=== PATIENT | female | born 1960 | race Caucasian/White ===

== ENCOUNTER → 2017-05-09 | Outpatient (CLI) | payer MEDICARE, OTHER ==
--- NOTE | 2017-05-10 07:36 | RAD ---
EXAM DESCRIPTION: Hand,Right 3 Views CLINICAL HISTORY: 56 years Female, PAIN IN RIGHT HAND COMPARISON: None. FINDINGS: 3 views of the right hand show no acute fracture or malalignment. Mild degenerative changes involving a few interphalangeal joints. There is a tiny calcification adjacent to the tip of the ulnar styloid which is not acute and may be related to remote trauma or mild degenerative calcification. No radiopaque foreign body or soft tissue gas. IMPRESSION: Mild degenerative changes, otherwise unremarkable exam. Electronically signed by: Jalen Duggan MD 05/10/2017 7:35 AM CDT Workstation: -[facility]
--- NOTE | 2017-05-10 07:36 | RAD ---
EXAM DESCRIPTION: Hand,Left 3 Views CLINICAL HISTORY: 56 years Female, PAIN IN LEFT HAND COMPARISON: None. FINDINGS: 3 views of the left hand show no acute fracture or malalignment. The joint spaces are fairly well-maintained. Mild degenerative changes involving a few interphalangeal joints. No radiopaque foreign body or soft tissue gas. IMPRESSION: Mild degenerative changes, but no acute left hand abnormality. Electronically signed by: Jalen Duggan MD 05/10/2017 7:34 AM CDT Workstation: [facility]
== END ==
LOC: RAD 09:26
PROVIDERS: ATTEND Orthopaedic Surgery
DX: M79.641 Pain in right hand (principal); M79.642 Pain in left hand; M12.841 Other specific arthropathies, not elsewhere classified, right hand; M12.842 Other specific arthropathies, not elsewhere classified, left hand

== ENCOUNTER 2017-05-31 06:04 | Day surgery (SDC) | payer MEDICARE, OTHER ==
--- NOTE | 2017-05-27 08:53 | HP ---
CHIEF COMPLAINT: Left hand numbness and pain. HISTORY OF PRESENT ILLNESS: Tiny is a 56-year-old female with a history of pain in the left hand over the A1 oleksandr of the fourth digit. She also has numbness that has been going on for many years. She has had an EMG which indicates carpal tunnel syndrome. Because of the ongoing symptoms, she has requested operative intervention. After discussing the risks, benefits and alternatives to carpal tunnel release as well as trigger finger release, the patient has given informed consent. PAST SURGICAL HISTORY: 1. Total knee replacement. 2. Cervical fusion. MEDICATIONS: 1. Metformin. 2. Protonix. 3. Wellbutrin. ALLERGIES: NO KNOWN DRUG ALLERGIES. CODE STATUS: Full code. IMMUNIZATIONS: Up to date. SOCIAL HISTORY: The patient does not drink or use any illicit drugs. She does smoke. FAMILY HISTORY: None pertinent to today's complaint. REVIEW OF SYSTEMS: Negative except as indicated in the History of Present Illness. PHYSICAL EXAMINATION: VITAL SIGNS: Blood pressure 122/60. Pulse 68. Height 5'8". Weight 124. MENTAL STATUS: The patient is awake, alert, and is able to give a good history and participate in the physical. The patient is oriented to person, place and time. SKIN: Normal tone and turgor. MUSCULOSKELETAL: She has a positive Tinel's and positive Phalen's on the affected side. She has no significant thenar atrophy. She does maintain full range of motion in all the digits as well as her wrist. She has 5/5 web analyst strength. She has palpable clicking at the fourth digit A1 oleksandr. She has pain at the A1 oleksandr. ASSESSMENT: 1. Carpal tunnel syndrome. 2. Trigger finger. PLAN: The plan at this point is for carpal tunnel release as well as trigger finger release. We have discussed the risks, benefits, and alternatives to that and the patient has given informed consent. #[id number] [facility]
[2017-05-31] MEDS ORDERED: SODIUM CHL 0.9% 100ML MINI-BAG 100 ML IVPB ONE (07:58)
[2017-05-31] MEDS ORDERED: ceFAZolin SODIUM 1 GM VIAL ONE ×2 (07:58→11:36)
[2017-05-31] MEDS ORDERED: LACTATED RINGERS 1,000 ML ONE (07:58)
[2017-05-31] MEDS ORDERED: LIDOCAINE 1% 50 ML VIAL INJ ONE (11:36)
[2017-05-31] MEDS ORDERED: VANCOMYCIN HCL INJ 1,000 MG VIAL IVPB ONE (11:36)
[2017-05-31] MEDS ORDERED: BUPIVACAINE 0.25% INJ 30 ML VIAL INJ ONE (11:36)
[2017-05-31] MEDS ORDERED: PROPOFOL 200 MG/20 ML VIAL IV ONE (12:00)
[2017-05-31 14:19] VITALS: BP 108/68; TEMP 98.3
[2017-05-31 14:20] VITALS: O2SAT 95
--- NOTE | 2017-06-01 08:12 | OP ---
DATE OF PROCEDURE: 05/31/17 PREOPERATIVE DIAGNOSIS: 1. Left carpal tunnel syndrome. 2. Left fourth digit triggering. POSTOPERATIVE DIAGNOSIS: 1. Left carpal tunnel syndrome. 2. Left fourth digit triggering. PROCEDURE: 1. Left carpal tunnel release. 2. Trigger finger release. SURGEON: Kane Maki MD. PRESS MACHINE FEEDER: Onofre Molina CST, GILMAR. ANESTHESIA: Local with sedation. COMPLICATIONS: None. FINDINGS: 1. Thickening of the transverse carpal ligament. 2. Triggering at the A1 oleksandr. INDICATION: iTny has a long history of symptoms consistent with carpal tunnel syndrome as well as trigger finger. She has failed conservative measures and because of that failure, she has requested operative intervention. After discussing the risks, benefits and alternatives to operative intervention, the patient has given informed consent. PROCEDURE: The patient was brought to the Operating Room and placed in the supine position. Sedation was administered and local anesthetic was injected into the operative area under sterile conditions. After the injection of anesthetic, the arm was sterilely prepped and draped. A longitudinal incision was made directly overlying the transverse carpal ligament and blunt dissection was carried down to the ligament. The transverse carpal ligament was sharply transected along its length and a Rossford elevator was used to ensure complete release of the ligament. Once release had been confirmed, the wound was thoroughly irrigated and the wound was closed with Nylon suture. Attention was then focused on the trigger finger. A transverse incision was made directly overlying the A1 oleksandr of the triggering digit and blunt dissection was carried down to the oleksandr while protecting the digital nerves. After identification of the oleksandr, the oleksandr was transected and a Rossford elevator was passed both proximally and distally to ensure complete release. The finger was flexed and extended and there was no evidence of locking or clicking. The wound was thoroughly irrigated and closed with Nylon suture. Sterile dressings was placed and the patient was awakened and taken to the Day Surgery Unit. POSTOPERATIVE INSTRUCTIONS: The patient has been encouraged to do range of motion of the digits and will followup with us in two days. [facility][id number] [facility]
== END 2017-05-31 14:20 | disposition home or self-care (01) ==
LOC: AMB 06:04
PROVIDERS: ATTEND Orthopaedic Surgery
DX: G56.02 Carpal tunnel syndrome, left upper limb (principal); M65.352 Trigger finger, left little finger; E11.9 Type 2 diabetes mellitus without complications; K21.9 Gastro-esophageal reflux disease without esophagitis; J44.9 Chronic obstructive pulmonary disease, unspecified; G89.29 Other chronic pain; F17.210 Nicotine dependence, cigarettes, uncomplicated; Z79.84 Long term (current) use of oral hypoglycemic drugs; Z79.899 Other long term (current) drug therapy; Z79.51 Long term (current) use of inhaled steroids
CPT/HCPCS: 01810; 26055; 36416; 64721; 82948; 87070; J0690; J3370; J3490; J7050; J7120

== ENCOUNTER → 2017-11-28 | Outpatient (CLI) | payer MEDICARE, OTHER ==
--- NOTE | 2017-11-29 08:07 | US ---
EXAM DESCRIPTION: Carotid Duplex CLINICAL HISTORY: BRUIT COMPARISON: None Available. TECHNIQUE: Bilateral duplex carotid sonography with grayscale, color Doppler, and spectral pulse Doppler evaluation FINDINGS: On the right, intimal thickening and minimal tortuosity of the common carotid artery is present with soft plaque at the origin of the internal carotid artery along the anterior and posterior garcia. Peak CCA velocities are 103/16 cm/s and peak ICA velocities are 91/25 cm/s with an ICA/CCA ratio of 0.9. Antegrade flow in the external carotid and vertebral is demonstrated with estimated stenosis at the origin of the ICA estimated at less than 20%. On the left, intimal thickening in the common carotid artery is present with widely patent bifurcation with mild plaque in the mid ICA that is echogenic. Peak left CCA velocities are 113/19 cm/s with peak ICA velocities of 90/22 cm/s. The ICA/CCA ratio is 0.8. The luminal diameter stenosis is estimated at less than 30%. Antegrade flow in the vertebral and external carotid artery is present. IMPRESSION: Mild bilateral carotid atherosclerosis without hemodynamically significant stenosis or occlusion. Antegrade flow both vertebral arteries. Electronically signed by: Marcello Arciniega MD 11/29/2017 8:07 AM CATALYST MANUFACTURING OPERATOR
--- NOTE | 2017-11-29 08:31 | US ---
EXAM DESCRIPTION: Thyroid CLINICAL HISTORY: 57 years Female, NODULE COMPARISON: June 27, 2014 FINDINGS: The right thyroid lobe measures 5.8 x 2.0 x 2.3 cm. Again seen is a 2.1 cm heterogeneous but predominantly solid nodule in the inferior pole of the right thyroid lobe with a few microcalcifications, stable or only minimally increased in size from June,. There are several additional smaller solid or complex cystic nodules elsewhere in the right thyroid lobe measuring up to 1.3 cm diameter, also stable or only minimally increased in size from June,. The thyroid isthmus is at the upper limits of normal size, measuring 5 mm AP diameter. The left thyroid lobe measures 6.0 x 2.1 x 2.1 cm. It contains a subcentimeter cystic nodule in its midportion, stable. No new left thyroid nodule. IMPRESSION: Bilateral thyroid nodules including solid nodules in the right thyroid lobe as detailed above, all not significantly changed in size or appearance from June,. Upper normal thyroid size, but no new nodule or other significant interval change. Electronically signed by: Jalen Duggan MD 11/29/2017 8:30 AM WRAPPER COUNTER
== END ==
LOC: US 09:00
PROVIDERS: ATTEND Family Medicine
DX: I65.23 Occlusion and stenosis of bilateral carotid arteries (principal); E04.9 Nontoxic goiter, unspecified

== ENCOUNTER → 2018-01-10 | Outpatient (CLI) | payer MEDICARE, OTHER ==
--- NOTE | 2018-01-11 14:15 | MAM ---
EXAM DESCRIPTION: 3D Screening BILATERAL : Digital Mammography. CLINICAL HISTORY: 57 years Female ANNUAL SCREENING . No complaints. No family history of breast cancer. Postmenopausal. No HRT. COMPARISON: Baseline study at this facility. No prior reports available. TECHNIQUE: Bilateral CC and MLO projection full-field images, 3-D tomosynthesis digital mammographic technique. Also bilateral synthesized CC/ MLO full-field images. CAD not utilized. FINDINGS: The breast parenchymal density pattern is: Almost entirely fatty. No skin thickening or nipple retraction bilateral solitary microcalcifications. More in the left breast in the right. Intramammary lymph nodes on the left. Soft tissue mass with marginal calcification in the lower outer quadrant of the anterior third of the left breast. No focal, stellate mass or density, focal asymmetry , and no suspicious microcalcifications bilaterally. IMPRESSION: BI-RADS CATEGORY: 2 - BENIGN FINDINGS. FOLLOW UP: Routine digital bilateral screening, one year interval from December 2017. Written communication explaining the IMPRESSION and follow-up, will be mailed to the patient and referring health care provider. According to the [employer], yearly mammograms are recommended starting at age 40 and continuing as long as a woman is in good health. Any breast change noted on a breast self-exam should be reported promptly to the patient's healthcare provider. Breast MRI is recommended for women with an approximately 20-25% or greater lifetime risk of breast cancer, including women with a strong family history of breast or ovarian cancer and women who have been treated for Hodgkin's disease. A negative mammographic report should not delay tissue diagnosis in patients with significant clinical history or physical findings. Extremely dense breast tissue limits the sensitivity of digital mammography. Electronically signed by: Onofre Rain MD 01/11/2018 2:13 PM CDT
== END ==
LOC: MAMMO 09:00
PROVIDERS: ATTEND Family Medicine
DX: Z12.31 Encounter for screening mammogram for malignant neoplasm of breast (principal)

== ENCOUNTER 2018-03-30 14:58 | Emergency (ER) | payer MEDICARE, OTHER ==
[2018-03-30 15:20] VITALS: TEMP 98
[2018-03-30] MEDS ORDERED: SILVER SULFADIAZINE 1 % 25 GM TUBE TOP ONE (15:26)
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
[2018-03-30 16:08] VITALS: BP 153/77; O2SAT 97
== END 2018-03-30 16:08 | disposition home or self-care (01) ==
LOC: ER 14:58
DX: T23.292A Burn of second degree of multiple sites of left wrist and hand, initial encounter (principal); X15.0XXA Contact with hot stove (kitchen), initial encounter; Y92.9 Unspecified place or not applicable

== ENCOUNTER 2018-07-04 05:29 | Day surgery (SDC) | payer MEDICARE, OTHER ==
--- NOTE | 2018-07-03 15:15 | HP ---
CHIEF COMPLAINT: Left thumb pain. HISTORY OF PRESENT ILLNESS: Tiny is a 57-year-old female with a history of pain at the A1 oleksandr of the left thumb. She has had pain with motion in addition to clicking and occasional locking. She denies any trauma associated with this and denies any radiation of pain. We have diagnosed her with trigger finger and she has requested operative intervention. After discussing the risks , benefits and alternatives to that, the patient has given informed consent. PAST SURGICAL HISTORY: 1. Total knee arthroplasty. MEDICATIONS: 1. Metformin. 2. Protonix. 3. Wellbutrin. ALLERGIES: NO KNOWN DRUG ALLERGIES. CODE STATUS: Full code. IMMUNIZATIONS: Up to date. FAMILY HISTORY: None pertinent to today's complaint. SOCIAL HISTORY: The patient does not drink or use any illicit drugs. She does smoke. REVIEW OF SYSTEMS: Negative except as indicated in the History of Present Illness. PHYSICAL EXAMINATION: VITAL SIGNS: Blood pressure 180/96. Pulse 59. Height 5'8". Weight 218 pounds. MENTAL STATUS: The patient is awake, alert, and is able to give a good history and participate in the physical. The patient is oriented to person, place and time. SKIN: Normal tone and turgor. MUSCULOSKELETAL: She has palpable clicking at the A1 oleksandr. She has intact sensation throughout the extremity and it is warm and well perfused. She has full range of motion of all digits. There is no deformity. ASSESSMENT: 1. Trigger finger. PLAN: The plan at this point is for trigger finger release. We have discussed the risks, benefits, and alternatives to that and the patient has given informed consent. #[id number] [facility]
[2018-07-04] MEDS ORDERED: LACTATED RINGERS 1,000 ML ONE (05:50)
[2018-07-04] MEDS ORDERED: SODIUM CHLORIDE 0.9% 100ML 100 ML IVPB ONE (05:51)
[2018-07-04] MEDS ORDERED: ceFAZolin SODIUM 1 GM VIAL ONE (05:51)
[2018-07-04] MEDS ORDERED: BUPIVACAINE 0.25% INJ 30 ML VIAL INJ ONE (06:21)
[2018-07-04] MEDS ORDERED: LIDOCAINE 1% 10 ML VIAL INJ ONE ×2 (06:21→10:00)
[2018-07-04] MEDS ORDERED: MIDAZOLAM INJ 2 MG/2 ML VIAL ONE (06:23)
[2018-07-04] MEDS ORDERED: fentaNYL CITRATE INJ 50 MCG/ML AMP ONE (06:23)
[2018-07-04] MEDS ORDERED: ACETAMINOPHEN IV 1000MG 100 ML ONE (07:15)
[2018-07-04] MEDS: ceFAZolin SODIUM 1 GM VIAL ONE ×2 (07:27→07:32)
[2018-07-04] MEDS: VANCOMYCIN HCL INJ 1,000 MG VIAL IVPB ONE ×2 (07:27→07:32)
[2018-07-04 08:37] VITALS: BP 137/84; TEMP 96.3; O2SAT 98
--- NOTE | 2018-07-04 08:46 | OP ---
DATE OF PROCEDURE: 07/04/18 PREOPERATIVE DIAGNOSIS: 1. Trigger thumb. POSTOPERATIVE DIAGNOSIS: 1. Trigger thumb. PROCEDURE: 1. Trigger finger release. SURGEON: Kane Maki MD. JUNIOR MECHANICAL ENGINEER: Onofre Molina CST, SA-C. ANESTHESIA: Local with sedation. COMPLICATIONS: None. FINDINGS: Triggering at the A1 oleksandr. INDICATION: Ms. Villar has a history of both triggering and pain at the A1 oleksandr. She has failed conservative measures. Because of her failure of conservative measures and ongoing symptoms, she has requested operative intervention. After discussing the risks, benefits and alternatives to operative therapy, the patient has given informed consent for trigger finger release. PROCEDURE: The patient was brought to the Operating Room and placed in the supine position. Sedation was administered and local anesthetic was injected into the operative area. Following injection, the arm was sterilely prepped and draped. A transverse incision was made directly overlying the A1 oleksandr of the triggering digit and blunt dissection was carried down to the oleksandr while protecting the digital nerves. After identification of the oleksandr, the oleksandr was transected and a Eloy elevator was passed both proximally and distally to ensure complete release. The finger was flexed and extended and there was no evidence of locking or clicking. The wound was thoroughly irrigated and closed with Nylon suture. A sterile dressing was placed and the patient was taken to the Day Surgery Unit. POSTOPERATIVE INSTRUCTIONS: The patient has been encouraged to do range of motion of the digits and will followup with us in two days. #[id number] [facility]
[2018-07-04] MEDS ORDERED: PROPOFOL 200 MG/20 ML VIAL IV ONE (10:00)
== END 2018-07-04 08:25 | disposition home or self-care (01) ==
LOC: AMB 05:29
PROVIDERS: ATTEND Orthopaedic Surgery
DX: M65.312 Trigger thumb, left thumb (principal); I10 Essential (primary) hypertension; E11.9 Type 2 diabetes mellitus without complications; K21.9 Gastro-esophageal reflux disease without esophagitis; E66.9 Obesity, unspecified; J44.9 Chronic obstructive pulmonary disease, unspecified; F17.210 Nicotine dependence, cigarettes, uncomplicated; Z96.659 Presence of unspecified artificial knee joint; Z79.84 Long term (current) use of oral hypoglycemic drugs; Z79.899 Other long term (current) drug therapy
CPT/HCPCS: 01810; 26055; 36415; 36416; 82948; 87070; J0690; J2250; J3010; J3370; J3490; J7050; J7120

== ENCOUNTER → 2018-08-07 | Outpatient (CLI) | payer MEDICARE, OTHER ==
--- NOTE | 2018-08-07 16:25 | MRI ---
EXAM DESCRIPTION: Lumbar Spine w/o Contrast : Magnetic Resonance Imaging. CLINICAL HISTORY: LUMBAR DISC DISEASE COMPARISON: MRI lumbar spine 08/06/2014. TECHNIQUE: Multiplanar, multiple standard sequences, non contrast MRI, lumbar spine. FINDINGS: For the purposes of this report, the L5-S1 is on T2 axial sequence 501 image 8. This is in agreement with the previous report. S1 is partially lumbarized with incomplete right sacral ala and superior SI joint. Rudimentary S1-S2 disc on image 2. No canal or foraminal stenosis at this level. L5-S1: Moderate disc space loss with anterior bulging and spurs. Anterior type II endplate reactive changes also extending to the bilateral endplate margins. Grade 1 retrolisthesis 3 mm with disc spur bulge 6 mm in the midline encroaching on the thecal sac. Also migrating inferior to the disc space to the left of midline effacing the left subarticular recess, and the left S1 nerve. Moderate canal narrowing. Bilateral moderate foraminal narrowing. L4-5: Disc desiccation and minimal disc space loss. Anterior bulging and endplate ridging. Mild posterior broad-based 3 mm bulge. Moderate flavum ligament hypertrophy with facet arthrosis encroaching on the posterior thecal sac with borderline canal stenosis. Annular fissure seen in the left intraforaminal bulge with mild foraminal narrowing. Right foramen patent. L3-4: Normal signal in the disc and disc space preserved. Minimal hypertrophy of the flavum ligaments and mild narrowing of the canal. Bilateral foramina are patent. L2-3: Normal signal in the disc and disc space preserved. Posterior elements unremarkable. Canal and foramina are patent. L1-2: Normal signal in the disc and disc space preserved. Tiny left paracentral 3 mm disc bulge. Canal and foramina are patent. T12-L1: Normal signal in the disc and disc space preserved. Posterior elements unremarkable. Canal and foramina are patent. Conus terminates at this level. L1-L5 mild dextroscoliosis. Paravertebral soft tissues minimal paraspinal muscle atrophy.. Normal marrow signal in the remaining vertebral bodies and the posterior elements. Vertebral bodies are not compressed at any level. IMPRESSION: 1. Transitional lumbosacral segment is interpreted to represent a lumbarized S1 segment. This is consistent with previous findings and report on MRI of lumbar spine July 2014. Rudimentary S1-2 disc. Hypoplastic right S1 sacral ala and rudimentary superior right SI joint. No canal or foraminal stenosis. 2. Anterior and bilateral disc space spondylosis at L5-S1. Grade 1 retrolisthesis posterior. Disc bulge into the thecal sac with inferior migration below the thecal sac effacing the left subarticular recess and possible encroachment on the descending left S1 nerve. Similar findings on the prior study. Bilateral foraminal narrowing is also stable. 3. L4-5 Disc desiccation anterior bulging and posterior bulging. Borderline mild canal stenosis with significant hypertrophic changes in the flavum ligaments and facets. Annular fissure in the left intraforaminal bulge. No significant canal narrowing. 4. Tiny left paracentral bulge of the L1-2 disc but no nerve impingement. . Electronically signed by: Onofre Rain MD 08/07/2018 4:23 PM CDT
== END ==
LOC: MRI 07:09
PROVIDERS: ATTEND Family Medicine
DX: M54.16 Radiculopathy, lumbar region (principal); M47.897 Other spondylosis, lumbosacral region; M51.26 Other intervertebral disc displacement, lumbar region

== ENCOUNTER → 2019-07-26 | Outpatient (CLI) | payer MEDICARE, OTHER ==
--- NOTE | 2019-07-27 07:56 | RAD ---
4 radiographs left knee. Indication: LEFT KNEE PAIN Impression: Postsurgical changes of left total knee arthroplasty noted. No periprosthetic fracture. Small knee effusion. Osteopenia. Electronically signed by: Reggie Hairston MD 07/27/2019 7:54 AM CDT
--- NOTE | 2019-07-27 07:56 | RAD ---
Single frontal radiograph pelvis Indication: HIP PAIN Comparison: None. Impression: No acute fracture identified. Evaluation for fracture is limited given the degree of osteopenia. If high clinical concern for acute fracture, correlation with MRI recommended given its greater sensitivity in the osteopenic patient. If the patient cannot tolerate MRI imaging or more urgent imaging is required, CT could be performed, however it is less sensitive in the osteopenic patient when compared to MRI. 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 Lower lumbar disc disease noted. Electronically signed by: Reggie Hairston MD 07/27/2019 7:54 AM CDT
--- NOTE | 2019-07-27 07:57 | RAD ---
EXAM DESCRIPTION: Knee,Right Complete CLINICAL HISTORY: 58 years Female, RIGHT KNEE PAIN COMPARISON: None. Findings: Location: Right knee No acute fracture or dislocation. Patellofemoral narrowing. Minimal medial compartment narrowing. Small scattered osteophytes. No significant joint effusion. Flattening of the femoral trochlea. IMPRESSION: No evidence of acute process in the right knee. Electronically signed by: Bryant Oconnor MD 07/27/2019 7:55 AM CDT
== END ==
LOC: RAD 09:32
PROVIDERS: ATTEND Orthopaedic Surgery
DX: M16.0 Bilateral primary osteoarthritis of hip (principal); M47.898 Other spondylosis, sacral and sacrococcygeal region; M85.862 Other specified disorders of bone density and structure, left lower leg; M51.36 Other intervertebral disc degeneration, lumbar region; Z96.652 Presence of left artificial knee joint; M25.561 Pain in right knee; M25.562 Pain in left knee

== ENCOUNTER → 2019-10-09 | Outpatient (CLI) | payer MEDICARE, OTHER ==
--- NOTE | 2019-10-11 09:55 | CT ---
Procedure: CT LUNG SCREENING Exam Date: Ordering Provider: Dylan Kang Clinical Indication: HX OF TOBACCO USE . Current cigarette smoker. 40 pack years. This patient meets eligibility criteria for low-dose CT lung cancer screening. Comparison: CTA January 2014. Technique: Using a multislice scanner, sequential helical axial imaging was obtained in the thorax, 2.5 mm thickness, 2.5 mm separation, from the level of the thoracic inlet through the lung bases without IV contrast. A low dose protocol was utilized. CTDI: 1.76 mGy. 120. kVp. 45 mA. DLP 63.83 mGy-cm. 2D sagittal and coronal reconstructed images, 6.0 mm thickness, were obtained. This exam was performed according to our departmental dose optimization program which includes use of automated exposure control, adjustment of the mA and/or kV according to patient size and/or use of iterative reconstruction technique. Nodule measurements under 10 mm are given as mean value of 3 axes diameters. FINDINGS: Lungs and large airways: Scattered isolated blebs and bulla mostly in the upper lung loco. Pleural parenchymal scarring in the bilateral lower lobes. Some of the bulla are peripheral adjacent to the pleura. This is consistent with a paraseptal emphysematous pattern. 2 nodules, 3.8 mm and 3.7 mm in the subpleural lateral right apex associated with adjacent parenchymal densities on axial images 2/ and 2/. Appears larger compared to the prior study. 2.5 mm subpleural nodule in the lateral base of the right upper lobe on axial image 2/59. Similar size nodule also subpleural location more inferior on image 2/62 pleural-parenchymal scarring in the right middle lobe. 3 mm nodule associated with the superior left major fissure on image 2/52 is stable. Focal perifissural thickening more inferiorly and medially on image 2/57 is stable. No abnormal mass and no focal infiltrate. Pleura and space: Negative. Mediastinum and ban: evaluation limited by low dose technique and lack of IV contrast. Small lymph nodes in the anterior superior and middle mediastinum are stable. No dominant solid mass. Heart and great vessels: Coronary artery calcifications predominantly left main and LAD vessels not as well seen on the prior study. Atherosclerotic calcification brachiocephalic vessels, aortic arch. Chest wall, lower neck, axillae: Evaluation also limited by same factors as described above. Unremarkable. Upper abdomen: Evaluation limited by low-dose technique. No free air or free fluid. 1.5 x 1 cm left adrenal mass measures -16 to -37 HU. Stable size since the prior CT scan. Normal size and density of the spleen. Surgical clips gallbladder fossa with no fluid. Possible small hiatal hernia. Osseous structures: Evaluation limited by low dose MIP technique. Spondylosis of the mid thoracic spine. No lytic or blastic lesions. IMPRESSION: Multiple pulmonary nodules, with 2 largest nodules between 3.5 and 4 mm mean diameter in the right upper lobe. Paraseptal type early emphysematous changes. No abnormal nodules or mass. No focal infiltrate.. [facility] Best Practice Recommendations: please see below for Lung RADS category and FOLLOW-UP.* *Lung RADS category CATEGORY 2- Nodules with a very low likelihood (less than 1%) of becoming a clinically active cancer due to size or lack of growth. Nodules: Perifissural nodule(s) < 10 mm. (526mm3). Solid or part solid nodule(s) less than 6mm (113.1 mm3), new solid nodule less than 4mm (33.5 mm3). Ground glass nodule(s) less than 30mm (61462.2 mm3) or unchanged or slow growing ground glass nodule 30mm or greater. Cat 3 or 4 nodule unchanged for 3 or more months. FOLLOW-UP: Continue annual screening with a Low Dose Chest CT in 12 months for re-evaluation. Stable size of left adrenal adenoma since prior CT scan January 2014. Electronically signed by: Onofre Rain MD 10/11/2019 9:54 AM [facility]
== END ==
LOC: CT 14:00
PROVIDERS: ATTEND Family Medicine
DX: Z87.891 Personal history of nicotine dependence (principal); R91.8 Other nonspecific abnormal finding of lung field; J43.9 Emphysema, unspecified

== ENCOUNTER 2020-03-04 11:55 | Emergency (ER) | payer MEDICARE, OTHER ==
[2020-03-04 12:13] VITALS: TEMP 97.4
[2020-03-04] MEDS ORDERED: diphenhydrAMINE HCL 50 MG/ML VIAL IM ONE (12:14)
[2020-03-04] MEDS ORDERED: DEXAMETHASONE INJ 10 MG/ML VIAL IM ONE (12:14)
--- NOTE | 2020-03-04 12:52 | ED.PDOC ---
History of Present Illness - General Chief Complaint: Bite: Animal/Insect/Human Stated Complaint: bee sting Time Seen by Provider: 03/04/20 12:14 Source: patient, RN notes reviewed, Vital Signs reviewed Exam Limitations: no limitations - History of Present Illness Initial Comments: Patient is a 59-year-old white female who presents with complaints of left forearm and hand pain status post wasp sting. This occurred just prior to arrival. Patient has pain in her left forearm and hand. It is throbbing and stinging in nature. It is worse with palpation. Nothing makes it better. It is radiating down into her fingers and up into her elbow. Timing/Duration: 1 hour Severity: moderate Improving Factors: nothing Worsening Factors: movement Associated Symptoms: nausea/vomiting Allergies/Adverse Reactions: Allergies NO KNOWN ALLERGY Allergy (Verified 01/10/14 08:02) Home Medications: Ambulatory Orders Pantoprazole Tablet [Protonix] 40 mg PO ACBK #0 tab 01/12/14 Bupropion HCl [Bupropion HCl Xl] 300 mg PO DAILY@0704/16/14 Metformin HCl [Metformin Hydrochloride] 500 mg PO DAILY@0711/27/15 Atorvastatin Calcium [Lipitor] 20 mg PO QPM 05/27/17 Citalopram Hydrobromide [CeleXA] 20 mg PO DAILY@0700 05/27/17 Albuterol Inhaler [Ventolin Hfa Inhaler] 1 puff INH PRN PRN 07/03/18 Budes/Formoterol INH 160/4.5 [Symbicort Inhaler 160/4.5] 1 puff INH DAILY 07/03/18 Lisinopril 10 mg PO DAILY 07/03/18 Meloxicam 15 mg PO DAILY 03/04/20 Review of Systems - Review of Systems Constitutional: States: no symptoms reported, see HPI. Denies: chills, fever, malaise, weakness EENTM: States: no symptoms reported. Denies: eye pain, blurred vision, throat pain, throat swelling Respiratory: States: no symptoms reported. Denies: cough, short of breath, stridor Gastrointestinal/Abdominal: States: see HPI, nausea, vomiting Genitourinary: States: no symptoms reported Musculoskeletal: States: see HPI, other - Patient with left forearm pain and swelling. Skin: States: see HPI, change in color - Red surrounding the area of the sting. Neurological: States: no symptoms reported Endocrine: States: no symptoms reported Hematologic/Lymphatic: States: no symptoms reported All other Systems: Reviewed and Negative Past Medical History (General) - Patient Medical History Hx Seizures: No Hx Stroke: No Hx Asthma: No Hx of COPD: Yes Hx Cardiac Disorders: No Hx Congestive Heart Failure: No Hx Pacemaker: No Hx Hypertension: Yes Hx Thyroid Disease: No Hx Diabetes: Yes Hx Gastroesophageal Reflux: Yes Hx Cancer: No Hx MRSA: No MRSA Source:: Wound Surgical History: cholecystectomy - Vaccination History Hx Tetanus, Diphtheria Vaccination: Yes Hx Influenza Vaccination: Yes Hx Pneumococcal Vaccination: Yes - Social History Hx Tobacco Use: Yes Cigarettes Packs Per Day: 1 Hx Alcohol Use: Yes Hx Substance Use: No Hx Depression: No Hx Physical Abuse: No Hx Emotional Abuse: No - Female History Patient is a Female of Child Bearing Age (10 -59 yrs old): No Patient : No Family Medical History - Family History Mother Family History: Unknown Living Status: Unknown Physical Exam - Physical Exam General Appearance: Alert, Anxious, Obvious distress, Unkempt, Well Developed, Well Hydrated, Well Nourished Eye Exam: bilateral normal Ears, Nose, Throat: hearing grossly normal, normal ENT inspection, normal pharynx Neck: non-tender, full range of motion, supple, normal inspection Respiratory: chest non-tender, lungs clear, normal breath sounds, no respiratory distress Cardiovascular/Chest: normal peripheral pulses, regular rate, rhythm, no edema, no gallop, no murmur Peripheral Pulses: radial,right: 2+, radial,left: 2+ Gastrointestinal/Abdominal: normal bowel sounds, non tender, soft Back Exam: normal inspection, no CVA tenderness, no vertebral tenderness Extremity: normal range of motion, swelling - Left wrist and hand area secondary to a wasp sting. There is associated redness. Neurologic: diazo technician II-XII nml as tested, no motor/sensory deficits, alert, normal mood/affect, oriented x 3 Skin Exam: warm/dry, other - Redness surrounding the wasp sting. Lymphatic: no adenopathy Progress - Progress Progress: Differential diagnosis: Allergic reaction, wasp sting, bee sting, cellulitis among others. 03/04/20 12:53 Patient is improved after the IM Benadryl and IM Decadron. Will discharge home. Patient to take [id number] Benadryl. I have discussed this plan of care and for her to watch her blood sugars secondary to the Decadron. Patient voices understanding and agreement with the plan of care. Marcelo Gomez M.D. #[id number] Departure - Departure Clinical Impression: Hymenoptera sting Qualifiers: Encounter type: initial encounter Injury intent: accidental or unintentional Qualified Code(s): T63.481A - Toxic effect of venom of other arthropod, accidental (unintentional), initial encounter Time of Disposition: 12:55 Disposition: Discharge to Home or Self Care Condition: Good Departure Forms: ED Discharge - Pt. Copy, Patient Portal Self Enrollment Instructions: DI for Insect Bites and Stings Diet: resume usual diet Activity: increase activity as tolerated Referrals: Teodoro Castillo MD [Primary Care Provider] - 1-5 Days Home Medications: Ambulatory Orders Pantoprazole Tablet [Protonix] 40 mg PO ACBK #0 tab 01/12/14 Bupropion HCl [Bupropion HCl Xl] 300 mg PO DAILY@0700 04/16/14 Metformin HCl [Metformin Hydrochloride] 500 mg PO DAILY@0700 11/27/15 Atorvastatin Calcium [Lipitor] 20 mg PO QPM 05/27/17 Citalopram Hydrobromide [CeleXA] 20 mg PO DAILY@0700 05/27/17 Albuterol Inhaler [Ventolin Hfa Inhaler] 1 puff INH PRN PRN 07/03/18 Budes/Formoterol INH 160/4.5 [Symbicort Inhaler 160/4.5] 1 puff INH DAILY 07/03/18 Lisinopril 10 mg PO DAILY 07/03/18 Meloxicam 15 mg PO DAILY 03/04/20
[2020-03-04 13:05] VITALS: BP 162/96; O2SAT 93
== END 2020-03-04 13:05 | disposition home or self-care (01) ==
LOC: ER 11:55
DX: T63.481A Toxic effect of venom of other arthropod, accidental (unintentional), initial encounter (principal); I10 Essential (primary) hypertension; J44.9 Chronic obstructive pulmonary disease, unspecified; E11.9 Type 2 diabetes mellitus without complications; Z79.899 Other long term (current) drug therapy; F17.200 Nicotine dependence, unspecified, uncomplicated
CPT/HCPCS: J1100; J1200

== ENCOUNTER 2020-06-23 12:15 | Emergency (ER) | payer MEDICARE, OTHER ==
--- NOTE | 2020-06-23 12:42 | ED.PDOC ---
History of Present Illness - General Chief Complaint: Respiratory Problem Stated Complaint: SOB, high blood pressure, tachypnea Time Seen by Provider: 06/23/20 12:29 Additional Information: 59-year-old female that presents to the ER because not feeling well, patient said that for the past couple of days she has had some nausea vomiting decreased oral intake and not feeling well. This morning she woke up fine but then as soon as she took her morning pills she became started feeling bad again, did not vomit today and has had some reproducible anterior chest wall pain. No previous history of heart attacks in the past, patient is a smoker history of hypertension and COPD not oxygen dependent at home, patient denies fever chills or coughing - History of Present Illness Timing/Duration: other - couple of days Improving Factors: nothing Worsening Factors: nothing Associated Symptoms: loss of appetite, nausea/vomiting Allergies/Adverse Reactions: Allergies Bee Venom Allergy (Verified 06/23/20 12:40) Home Medications: Ambulatory Orders Pantoprazole Tablet [Protonix] 40 mg PO ACBK #0 tab 01/12/14 Bupropion HCl [Bupropion HCl Xl] 300 mg PO DAILY@0704/16/14 Metformin HCl [Metformin Hydrochloride] 500 mg PO DAILY@0700 11/27/15 Atorvastatin Calcium [Lipitor] 20 mg PO QPM 05/27/17 Citalopram Hydrobromide [CeleXA] 20 mg PO DAILY@0700 05/27/17 Albuterol Inhaler [Ventolin Hfa Inhaler] 1 puff INH PRN PRN 07/03/18 Budes/Formoterol INH 160/4.5 [Symbicort Inhaler 160/4.5] 1 puff INH DAILY 07/03/18 Lisinopril 10 mg PO DAILY 07/03/18 Meloxicam 15 mg PO DAILY 03/04/20 Acetaminophen W/ Codeine [Tylenol W/ CODEINE #3] 1 ea PO Q6HR #20 ea 06/23/20 Chlorthalidone 25 mg PO DAILY 06/23/20 Famotidine [Pepcid] 20 mg PO DAILY #20 tab 06/23/20 Ondansetron Odt [Zofran ODT] 4 mg PO Q6HR #20 tab 06/23/20 Tramadol HCl 50 mg PO 06/23/20 Review of Systems - Review of Systems EENTM: States: no symptoms reported Respiratory: States: no symptoms reported Cardiology: States: chest pain Gastrointestinal/Abdominal: States: nausea, vomiting Genitourinary: States: no symptoms reported Musculoskeletal: States: no symptoms reported Skin: States: no symptoms reported Neurological: States: no symptoms reported Endocrine: States: no symptoms reported Hematologic/Lymphatic: States: no symptoms reported Past Medical History (General) - Patient Medical History Hx Seizures: No Hx Stroke: No Hx Asthma: No Hx of COPD: Yes Hx Cardiac Disorders: No Hx Congestive Heart Failure: No Hx Pacemaker: No Hx Hypertension: Yes Hx Thyroid Disease: No Hx Diabetes: Yes Hx Gastroesophageal Reflux: Yes Hx Cancer: No Hx Hepatitis C: No Hx MRSA: No MRSA Source:: Wound Surgical History: cholecystectomy - Vaccination History Hx Tetanus, Diphtheria Vaccination: Yes Hx Influenza Vaccination: Yes Hx Pneumococcal Vaccination: Yes - Social History Hx Tobacco Use: Yes Hx Alcohol Use: Yes Hx Substance Use: No Hx Depression: Yes Hx Physical Abuse: No Hx Emotional Abuse: No - Female History Patient : No Family Medical History - Family History Mother Family History: Unknown Living Status: Unknown Physical Exam - Physical Exam General Appearance: Alert, Well Developed, Well Groomed, Well Hydrated, Well Nourished Eye Exam: bilateral normal Ears, Nose, Throat: hearing grossly normal, normal ENT inspection, normal pharynx Neck: non-tender, supple, normal inspection, carotid bruit Respiratory: lungs clear, normal breath sounds, no respiratory distress, no accessory muscle use, other - substernal pain with palpation Cardiovascular/Chest: normal peripheral pulses, regular rate, rhythm, no edema, no gallop, no JVD, no murmur Peripheral Pulses: radial,right: 2+, radial,left: 2+ Back Exam: normal inspection, no CVA tenderness, no vertebral tenderness, CVA tenderness (R) Extremity: normal range of motion, non-tender, normal inspection, no pedal edema, no calf tenderness Neurologic: debt and budget counselor II-XII nml as tested, no motor/sensory deficits, alert, normal mood/affect, oriented x 3, abnormal cerebellar tests Skin Exam: normal color Lymphatic: no adenopathy Progress - Progress Progress: Is a 59-year-old female that presents to the ER because of not feeling well the past few days has no nausea or vomiting, no fever no chills this morning she woke up feeling fine but then after taking her medications he started having some some of the same symptoms, and also patient mentioned having some anterior chest wall pain worse with palpation, patient EKG did not show any acute ischemic changes, patient troponins were negative BNP was normal but because of the chest discomfort she was a little tachycardic I ordered a d-dimer that was elevated order a CTA chest that did not show any pneumonia did not show any PE, patient feels a lot better does not really vomiting is comfortable so be discharged home with Zofran and Pepcid. And follow primary care physician, and instructions to return to the ER immediately if there is any severe chest pain nausea vomiting shortness of breath dizziness sensation of fainting any sensation in the chest with radiation to the left arm right arm both arms neck back or jaw excessive sweating or any other concern 06/23/20 14:47 Departure - Departure Clinical Impression: Chest wall pain Nausea & vomiting Qualifiers: Vomiting type: unspecified Vomiting Intractability: non-intractable Qualified Code(s): R11.2 - Nausea with vomiting, unspecified Disposition: Discharge to Home or Self Care Condition: Fair Departure Forms: ED Discharge - Pt. Copy, Patient Portal Self Enrollment Instructions: Nausea and Vomiting, Adult (DC), Costochondritis (DC) Diet: resume usual diet Referrals: Teodoro Castillo MD [Primary Care Provider] - 1-2 Weeks Prescriptions: Acetaminophen W/ Codeine [Tylenol W/ CODEINE #3] 1 ea PO Q6HR #20 ea Ondansetron Odt [Zofran ODT] 4 mg PO Q6HR #20 tab Famotidine [Pepcid] 20 mg PO DAILY #20 tab Home Medications: Ambulatory Orders Pantoprazole Tablet [Protonix] 40 mg PO ACBK #0 tab 01/12/14 Bupropion HCl [Bupropion HCl Xl] 300 mg PO DAILY@0700 04/16/14 Metformin HCl [Metformin Hydrochloride] 500 mg PO DAILY@0711/27/15 Atorvastatin Calcium [Lipitor] 20 mg PO QPM 05/27/17 Citalopram Hydrobromide [CeleXA] 20 mg PO DAILY@0700 05/27/17 Albuterol Inhaler [Ventolin Hfa Inhaler] 1 puff INH PRN PRN 07/03/18 Budes/Formoterol INH 160/4.5 [Symbicort Inhaler 160/4.5] 1 puff INH DAILY 07/03/18 Lisinopril 10 mg PO DAILY 07/03/18 Meloxicam 15 mg PO DAILY 03/04/20 Acetaminophen W/ Codeine [Tylenol W/ CODEINE #3] 1 ea PO Q6HR #20 ea 06/23/20 Chlorthalidone 25 mg PO DAILY 06/23/20 Famotidine [Pepcid] 20 mg PO DAILY #20 tab 06/23/20 Ondansetron Odt [Zofran ODT] 4 mg PO Q6HR #20 tab 06/23/20 Tramadol HCl 50 mg PO 06/23/20 Additional Instructions: return to the ER immediately if there is any severe chest pain nausea vomiting shortness of breath dizziness sensation of fainting any sensation in the chest with radiation to the left arm right arm both arms neck back or jaw excessive sweating or any other concern
--- NOTE | 2020-06-23 13:05 | RAD ---
EXAM DESCRIPTION: Chest,1 View CLINICAL HISTORY: 59 years Female, chest pain COMPARISON: 10/09/2019 TECHNIQUE: AP portable chest. FINDINGS: The lungs are clear. No focal consolidation, pneumothorax or pleural effusion seen. The heart is normal in size. No acute osseous abnormality. IMPRESSION: No acute cardiopulmonary process. Electronically signed by: Shan Younger DO 06/23/2020 1:04 PM CDT
--- NOTE | 2020-06-23 14:41 | CT ---
EXAM DESCRIPTION: CTA Chest CLINICAL HISTORY: 59 years, Female, evaluate for PE . Chest pain COMPARISON: Chest radiograph same day. CT chest 10/09/2019. TECHNIQUE: CT pulmonary angiography is performed with thin-section multi detector technique during rapid bolus administration of IV contrast media. Multiplanar reformatted images are reviewed along with source images and maximum intensity projection three dimensional images which were created on a separate dedicated workstation and are stored in the patient's medical record. FINDINGS: No filling defect within the main, right or left, or segmental pulmonary artery branches. The pulmonary arteries are normal in caliber. Limited evaluation of the thoracic aorta is within normal limits without gross evidence of aneurysm or dissection. Right upper lobe subcentimeter nodularities are unchanged. No focal consolidation, pneumothorax, or pleural effusion. The trachea and proximal bronchi are patent. Few mildly prominent mediastinal lymph nodes (including subcarinal lymph node measuring 8 mm short axis) are similar compared to prior examination and can be reactive. No morphologically suspicious mediastinal or hilar lymphadenopathy. The heart is normal in size without pericardial effusion. No acute osseous abnormality. Multilevel mild degenerative changes of thoracic spine. The partially imaged abdomen demonstrate changes of cholecystectomy. Left 1.2 cm adrenal adenoma appears unchanged. IMPRESSION: 1. No evidence of acute or chronic pulmonary embolism. 2. No acute pulmonary process. This exam was performed according to our departmental dose-optimization program, which includes automated exposure control, adjustment of the mA and/or kV according to patient size and/or use of iterative reconstruction technique. Electronically signed by: Shan Younger DO 06/23/2020 2:39 PM CDT
[2020-06-23 15:30] VITALS: BP 133/86; TEMP 97.2; O2SAT 95
== END 2020-06-23 15:20 | disposition home or self-care (01) ==
LOC: ER 12:15
DX: R07.89 Other chest pain (principal); R11.2 Nausea with vomiting, unspecified; I10 Essential (primary) hypertension; J44.9 Chronic obstructive pulmonary disease, unspecified; F17.200 Nicotine dependence, unspecified, uncomplicated; E11.9 Type 2 diabetes mellitus without complications; K21.9 Gastro-esophageal reflux disease without esophagitis; F32.9 Major depressive disorder, single episode, unspecified; Z79.899 Other long term (current) drug therapy; Z79.84 Long term (current) use of oral hypoglycemic drugs

== ENCOUNTER 2020-06-23 16:01 | Observation (INO) | payer MEDICARE, OTHER ==
--- NOTE | 2020-06-23 16:32 | ED.PDOC ---
History of Present Illness - General Time Seen by Provider: 06/23/20 16:06 Source: patient, RN notes reviewed, Vital Signs reviewed Exam Limitations: no limitations Additional Information: 59-year-old female, was presenting to the ER because she was found diaphoretic at her primary care physician's office, this patient was seen here earlier she came in because of nausea and vomiting and anterior chest wall pain very typical of costochondritis, patient got to set of troponins that were negative because her D-dimers were elevated I got a CTA that did not show pneumonia or PE, when patient was discharged home she was very comfortable did not appear any distress, did not appear to have any shortness of breath. By the time she was discharged home her brother made her go see her primary care physician. Dr. Castillo noticed that she was diaphoretic so he was concerned so he sent her back here for admission, when asked the patient how she was doing she said that she was doing fine but she has a very overprotective family she did not have any complaints but her brother and her sister decided to bring her here so we will admit her for observation. whe she arrived In the ER without any complaints walking with a steady gait and does not appear short of breath and asking to smoke a cigarretter - History of Present Illness Timing/Duration: other - days Improving Factors: nothing Worsening Factors: nothing Associated Symptoms: nausea/vomiting Allergies/Adverse Reactions: Allergies Bee Venom Allergy (Verified 06/23/20 12:40) Home Medications: Ambulatory Orders Pantoprazole Tablet [Protonix] 40 mg PO ACBK #0 tab 01/12/14 Bupropion HCl [Bupropion HCl Xl] 300 mg PO DAILY@69904/16/14 Metformin HCl [Metformin Hydrochloride] 500 mg PO DAILY@69911/27/15 Atorvastatin Calcium [Lipitor] 20 mg PO QPM 05/27/17 Citalopram Hydrobromide [CeleXA] 20 mg PO DAILY@0705/27/17 Albuterol Inhaler [Ventolin Hfa Inhaler] 1 puff INH PRN PRN 07/03/18 Budes/Formoterol INH 160/4.5 [Symbicort Inhaler 160/4.5] 1 puff INH DAILY 07/03/18 Lisinopril 10 mg PO DAILY 07/03/18 Meloxicam 15 mg PO DAILY 03/04/20 Acetaminophen W/ Codeine [Tylenol W/ CODEINE #3] 1 ea PO Q6HR #20 ea 06/23/20 Chlorthalidone 25 mg PO DAILY 06/23/20 Famotidine [Pepcid] 20 mg PO DAILY #20 tab 06/23/20 Ondansetron Odt [Zofran ODT] 4 mg PO Q6HR #20 tab 06/23/20 Tramadol HCl 50 mg PO 06/23/20 Review of Systems - Review of Systems Constitutional: States: no symptoms reported EENTM: States: no symptoms reported Respiratory: States: no symptoms reported Gastrointestinal/Abdominal: States: nausea, vomiting Musculoskeletal: States: no symptoms reported Skin: States: no symptoms reported Neurological: States: no symptoms reported Endocrine: States: no symptoms reported Hematologic/Lymphatic: States: no symptoms reported Past Medical History (General) - Patient Medical History Hx Seizures: No Hx Stroke: No Hx Asthma: No Hx of COPD: Yes Hx Cardiac Disorders: No Hx Congestive Heart Failure: No Hx Pacemaker: No Hx Hypertension: Yes Hx Thyroid Disease: No Hx Diabetes: Yes Hx Gastroesophageal Reflux: Yes Hx Cancer: No Hx Hepatitis C: No Hx MRSA: No MRSA Source:: Wound - Vaccination History Hx Tetanus, Diphtheria Vaccination: Yes Hx Influenza Vaccination: Yes Hx Pneumococcal Vaccination: Yes - Social History Hx Tobacco Use: Yes Hx Alcohol Use: Yes Hx Substance Use: No Hx Depression: Yes Hx Physical Abuse: No Hx Emotional Abuse: No - Female History Patient : No Family Medical History - Family History Mother Family History: Unknown Living Status: Unknown Physical Exam - Physical Exam General Appearance: Alert, Well Developed, Well Groomed, Well Hydrated Eye Exam: bilateral normal Ears, Nose, Throat: hearing grossly normal, normal ENT inspection, normal pharynx Neck: non-tender, full range of motion, supple, normal inspection Respiratory: chest non-tender, lungs clear, normal breath sounds, no respiratory distress, no accessory muscle use Cardiovascular/Chest: normal peripheral pulses, regular rate, rhythm, no edema, no gallop, no JVD, no murmur Peripheral Pulses: radial,right: 2+, radial,left: 2+ Gastrointestinal/Abdominal: normal bowel sounds, non tender, soft, no organomegaly, no pulsatile mass Back Exam: normal inspection, no CVA tenderness, no vertebral tenderness Extremity: normal range of motion, non-tender, normal inspection, no pedal edema, no calf tenderness Neurologic: web applications programmer II-XII nml as tested, no motor/sensory deficits, alert, normal mood/affect, oriented x 3 Skin Exam: normal color Lymphatic: no adenopathy Progress - Progress Progress: 59 year old female that presents the ER because she was found diaphoretic on her primary care physician, Dr Castillo sent her here for observation patient was seen earlier we worked her up for chest pain and nausea and vomiting, patient did not have any abdominal pain or lower quadrant pain and no abdominal distention, patient feels absolutely fine but she family wants her admitted the hospital so patient agrees to stay overnight 06/23/20 16:39 Departure - Departure Clinical Impression: Diaphoresis Nausea & vomiting Qualifiers: Vomiting type: unspecified Vomiting Intractability: unspecified Qualified Code(s): R11.2 - Nausea with vomiting, unspecified Disposition: Admit Patient Referrals: Teodoro Castillo MD [Primary Care Provider] - 1-2 Weeks Home Medications: Ambulatory Orders Pantoprazole Tablet [Protonix] 40 mg PO ACBK #0 tab 01/12/14 Bupropion HCl [Bupropion HCl Xl] 300 mg PO DAILY@0700 04/16/14 Metformin HCl [Metformin Hydrochloride] 500 mg PO DAILY@0700 11/27/15 Atorvastatin Calcium [Lipitor] 20 mg PO QPM 05/27/17 Citalopram Hydrobromide [CeleXA] 20 mg PO DAILY@0700 05/27/17 Albuterol Inhaler [Ventolin Hfa Inhaler] 1 puff INH PRN PRN 07/03/18 Budes/Formoterol INH 160/4.5 [Symbicort Inhaler 160/4.5] 1 puff INH DAILY 07/03/18 Lisinopril 10 mg PO DAILY 07/03/18 Meloxicam 15 mg PO DAILY 03/04/20 Acetaminophen W/ Codeine [Tylenol W/ CODEINE #3] 1 ea PO Q6HR #20 ea 06/23/20 Chlorthalidone 25 mg PO DAILY 06/23/20 Famotidine [Pepcid] 20 mg PO DAILY #20 tab 06/23/20 Ondansetron Odt [Zofran ODT] 4 mg PO Q6HR #20 tab 06/23/20 Tramadol HCl 50 mg PO 06/23/20 Decision To Admit - Decistion To Admit Decision to Admit Reason: Admit from ER Decision to Admit Date: 06/23/20 Decision to Admit Time: 16:41
--- NOTE | 2020-06-23 19:57 | HP ---
SUPERVISING PHYSICIAN: Arturo Molina MD CHIEF COMPLAINT: Nausea, vomiting, weakness. HISTORY OF PRESENT ILLNESS: This is a 59 year-old female who was in her usual state of health until Tuesday morning. She actually had gone out with her family and they had gone to [place]. When she got home she felt like she was somewhat overheated and felt nauseated and actually vomited several times. Her blood pressure was also going up and down. She had very poor intake at that time and had some nausea and vomiting on Tuesday as well. She also had a complaint of chest pain with diaphoresis but she did not have any nausea or vomiting today. She actually came to the Emergency Room two times on the date of admission. Her initial vital signs showed a temperature of 97.4, heart rate 102 with blood pressure 128/94, respiratory rate 24, oxygen saturation 99% on room air. Lab was done and her WBCs were 7,900 with hemoglobin of 16.3, hematocrit 45.4. D-dimer was 803. Chemistries showed sodium 131, potassium 3.5, chloride 94, BUN 21, creatinine 1.15, serum osmolality 273.1. Troponin 0.02. Chest x-ray showed no acute cardiopulmonary process. Chest thorax CTA showed no evidence of acute or chronic pulmonary embolism and no acute pulmonary process. She was released from the Emergency Room and her [id number] said she looked poorly and she took her to Dr. Castillo office, her primary care physician. She was again diaphoretic with some chest pain and feeling overall weakness. He called the Emergency Room doctor and asked that she be put in the hospital overnight for observation. PAST MEDICAL HISTORY: 1. Chronic obstructive pulmonary disease. 2. Type 2 diabetes mellitus. 3. Gastroesophageal reflux disease. 4. Hyperlipidemia. 5. Hypertension. 6. Osteoarthritis. 7. Lumbar disk disease. PAST SURGICAL HISTORY: 1. Multiple left knee operations with joint replacement. 2. Cholecystectomy. 3. Tonsillectomy and adenoidectomy. 4. Left fallopian tube and ovary removal. 5. Spinal surgery. CURRENT MEDICATIONS: ALLERGIES: Bee venom. FAMILY HISTORY: Positive for heart attack. SOCIAL HISTORY: She is . She lives in [place]. She smokes about 1/2 pack of cigarettes daily. She denies any ETOH or illicit drug use. REVIEW OF SYSTEMS: GENERAL: Positive for fatigue, negative for fever or weight changes. HEENT: Negative for sinus symptoms, ear pain, vision changes, sore throat. RESPIRATORY: Negative for coughing, wheezing, positive for shortness of breath CARDIAC: Positive for chest pain, negative for palpitations or tachycardia. GI: Positive for nausea and vomiting. Negative for constipation, diarrhea. GENITOURINARY: Negative for hematuria, dysuria, polyuria. MUSCULOSKELETAL: Negative for arthralgias, myalgias. SKIN: Negative for lesions or rashes. NEUROLOGICAL: Positive for weakness, negative for headaches or seizures. PHYSICAL EXAMINATION: VITAL SIGNS: Temperature 97.6, heart rate 76, blood pressure 116/79, respiratory rate 19. Oxygen saturation 99% on room air. GENERAL: This is a 59 year-old female patient who is lying in her hospital bed. She is in no acute distress. HEENT: Normocephalic and atraumatic. Pupils are equal and reactive. Oropharynx is clear. NECK: Supple without mass. CHEST: Essentially clear to auscultation bilaterally. CARDIOVASCULAR: Regular rate and rhythm. ABDOMEN: Soft, nondistended, non-tender. Bowel sounds are positive. EXTREMITIES: No cyanosis, clubbing, or edema. SKIN: Warm and dry. NEUROLOGIC: Awake, alert, and oriented x3. Cranial nerves II through XII are grossly intact as tested. LABORATORY: Labs and films are as per the history of present illness with the exception of her Covid test was negative. ASSESSMENT: 1. Chest pain, rule out acute coronary syndrome. Her initial cardiac enzymes have been negative. 2. Nausea and vomiting and dehydration. 3. Chronic obstructive pulmonary disease without exacerbation. 4. Diabetes mellitus type 2. 5. Gastroesophageal reflux disease. 6. Hypertension. PLAN: The patient has been placed in observation. We will initiate the chest pain guidelines. She will have an echocardiogram for in the morning and I will give her some fluids overnight as well as give her antiemetics. We will repeat her labs in the morning. Will have sliding scale insulin per protocol and I will restart her home medications as soon as they are verified. She will have nebulizer treatments, PPI for ulcer prophylaxis as well as Lovenox for DVT prophylaxis. Echocardiogram has been ordered for in the morning. Hopefully, she can be discharged tomorrow. #[id number] [facility]
[2020-06-23] MEDS ORDERED: NITROGLYCERIN 0.4 MG 25 EA TAB SL PRN (20:03)
[2020-06-23] MEDS ORDERED: SODIUM CHLORIDE 0.9% (FLUSH) 10 ML SYG IV PRN (20:03)
[2020-06-23] MEDS ORDERED: MORPHINE SULFATE INJ 10 MG/ML VIAL IV PRN (20:03)
[2020-06-23] MEDS ORDERED: ACETAMINOPHEN 325 MG TAB PO PRN (20:03)
[2020-06-23] MEDS ORDERED: ONDANSETRON INJ 4 MG/2 ML VIAL IV PRN (20:06)
[2020-06-23] MEDS ORDERED: ALBUTEROL SULFATE 2.5 MG/3 ML VIAL NEB PRN (20:07)
[2020-06-23] MEDS ORDERED: IV SET AND CAP CHANGE INJ INJ SCH (20:30)
[2020-06-23] MEDS: SODIUM CHLORIDE 0.9% (FLUSH) 10 ML SYG IV SCH (21:26)
[2020-06-23] MEDS ORDERED: DEXTROSE 50% 25 GM/50 ML SYG IV PRN (22:31)
[2020-06-23] MEDS ORDERED: traMADol HCL 50 MG TAB PO PRN (22:31)
[2020-06-23] MEDS ORDERED: GLUCAGON INJ 1 MG VIAL SUBCU PRN (22:31)
[2020-06-23] MEDS ORDERED: ACETAMINOPHEN W/COD #3 TAB 1 EA TAB ONE (23:08)
[2020-06-23] MEDS: ENOXAPARIN SODIUM 40 MG/0.4 ML SYG SUBCU SCH ×2 (23:08→23:10)
[2020-06-24] MEDS ORDERED: ACETAMINOPHEN W/COD #3 TAB (ER Disp) PO SCH
[2020-06-24] MEDS ORDERED: KCL 20MEQ/D5NS 1,000 ML IVS ONE (01:43)
[2020-06-24] MEDS ORDERED: PANTOPRAZOLE SODIUM TAB 40 MG PO SCH (06:30)
[2020-06-24] MEDS ORDERED: metFORMIN HCL 500 MG TAB PO SCH (07:00)
[2020-06-24] MEDS ORDERED: BUPROPION HCL 300 MG PO SCH (07:00)
[2020-06-24] MEDS ORDERED: CITALOPRAM HBR 20 MG TAB PO SCH (07:00)
[2020-06-24] MEDS ORDERED: Wellbutrin XL 150 MG TAB PO ONE (07:45)
[2020-06-24] MEDS ORDERED: MELOXICAM 7.5 MG TAB ONE (07:45)
[2020-06-24] MEDS: SODIUM CHLORIDE 0.9% (FLUSH) 10 ML SYG IV SCH (07:58)
[2020-06-24] MEDS: INSULIN LISPRO 100 UNITS/ML PEN SUBCU SCH ×3 (07:58→11:28)
[2020-06-24] MEDS ORDERED: ALBUTEROL SULFATE 2.5 MG/3 ML VIAL NEB SCH (08:00)
[2020-06-24] MEDS ORDERED: LISINOPRIL 10 MG TAB PO SCH (09:00)
[2020-06-24] MEDS ORDERED: NON-FORMULARY MEDICATION 1 EA MIS (Meloxicam [Meloxicam] 15 MG) PO SCH (09:00)
[2020-06-24] MEDS ORDERED: CHLORTHALIDONE 25 MG TAB PO SCH (09:00)
[2020-06-24] MEDS ORDERED: BUDESONIDE/FORMOTEROL 160/4.5 60 PUFF/6 GM INH INH SCH (09:00)
[2020-06-24] MEDS ORDERED: FAMOTIDINE 20 MG TAB PO SCH (09:00)
[2020-06-24 12:35] VITALS: BP 137/80; TEMP 97.5; O2SAT 95
[2020-06-24] MEDS ORDERED: ATORVASTATIN 20 MG TAB PO SCH (21:00)
[2020-06-24] MEDS ORDERED: ENOXAPARIN SODIUM 40 MG/0.4 ML SYG SUBCU SCH (21:00)
[2020-06-25] MEDS ORDERED: Wellbutrin XL 150 MG TAB PO SCH (07:00)
[2020-06-25] MEDS ORDERED: MELOXICAM 7.5 MG TAB PO SCH (09:00)
--- NOTE | 2020-06-28 19:50 | DS ---
SUPERVISING PHYSICIAN: Arturo Molina M.D. ADMISSION DIAGNOSIS: 1. Chest pain, rule out acute coronary syndrome. Her initial cardiac enzymes have been negative. 2. Nausea and vomiting and dehydration. 3. Chronic obstructive pulmonary disease without exacerbation. 4. Diabetes mellitus type 2. 5. Gastroesophageal reflux disease. 6. Hypertension. DISCHARGE DIAGNOSIS: 1. Chest pain with no signs of acute coronary syndrome with all labs and workup negative. 2. Dehydration likely secondary to heat exposure with associated nausea and vomiting, now resolved with fluids. 3. Chronic obstructive pulmonary disease without any signs of exacerbation. 4. Diabetes mellitus type 2, stable. 5. Gastroesophageal reflux disease, chronic. 6. Hypertension, chronic and stable. REASON FOR HOSPITALIZATION: This is a 59 year-old female who was in her usual state of health until Tuesday morning. She actually had gone out with her family and they had gone to [place]. When she got home she felt like she was somewhat overheated and felt nauseated and actually vomited several times. Her blood pressure was also going up and down. She had very poor intake at that time and had some nausea and vomiting on Tuesday as well. She also had a complaint of chest pain with diaphoresis but she did not have any nausea or vomiting today. She actually came to the Emergency Room two times on the date of admission. Her initial vital signs showed a temperature of 97.4, heart rate 102 with blood pressure 128/94, respiratory rate 24, oxygen saturation 99% on room air. Lab was done and her WBCs were 7,900 with hemoglobin of 16.3, hematocrit 45.4. D-dimer was 803. Chemistries showed sodium 131, potassium 3.5, chloride 94, BUN 21, creatinine 1.15, serum osmolality 273.1. Troponin 0.02. Chest x-ray showed no acute cardiopulmonary process. Chest thorax CTA showed no evidence of acute or chronic pulmonary embolism and no acute pulmonary process. She was released from the Emergency Room and her [id number] said she looked poorly and she took her to Dr. Castillo office, her primary care physician. She was again diaphoretic with some chest pain and feeling overall weakness. He called the Emergency Room doctor and asked that she be put in the hospital overnight for observation. LABORATORY STUDIES: White count 7,600 at discharge. Normal differential. H&H 15.1 and 42.7 respectively. Chemistries on discharge showed sodium 132, potassium 2.2. Sodium corrected to 135 with a glucose initially on admission of 271. BUN 23, creatinine 1.1. Troponins times number run in the Emergency Room and on the floor admission were 4 sets, all less than 0.02. Lipid panel showed elevated triglycerides at 226 with cholesterol 210, HDL 32. MICROBIOLOGY: All viral and bacterial targets were not detected as tested, including COVID. RADIOLOGY: She had a CT of the chest in the Emergency Room prior to discharge and readmission. Review of that record showed no acute evidence of acute cardiopulmonary embolus. No acute pulmonary process. EKG on admission showed sinus tachycardia initially. Repeat EKG on admission showed no ST or T wave changes compared to previous. Cardiac telemetry during observation period showed no acute changes or ectopy. HOSPITAL COURSE: Ms. Villar was placed in observation overnight for chest pain rule out and concerns for mild dehydration. She was given fluids. She showed no clinical deterioration. In fact, she showed good clinical improvement. On the morning of discharge was anxious to go home. She had no chest pains. No concerning changes on EKG. All troponins were all negative. Vital signs at discharge showed she was afebrile at 97.5, pulse 84, blood pressure 137/80, respirations 18, satting 95% on room air. PLAN: Ms. Villar was discharged on 06/24/20 with instructions to followup with Dr. Castillo in the following week after discharge. She was to resume her home medications as instructed. She was encouraged to avoid high heat exposures and push fluids such as Pedialyte to stay hydrated. She was given warnings to return to the Emergency Department should she have any concerning symptoms or return of symptoms. No new medications were prescribed on discharge. Diet on discharge was low fat diet, 1800 calorie ADA diet as tolerated. Activity is to increase activity as tolerated. Begin to avoid extreme heat conditions and remain hydrated. Condition on discharge was stable and improved. DISPOSITION: The patient is discharged home. #[id number] [facility]
== END 2020-06-24 12:20 | disposition home or self-care (01) ==
LOC: ER 16:01 → MS 16:02 → UNDOADMOB 19:56 → MS 19:56 → UNDODISOB 06-24 12:20
PROVIDERS: ADMIT Nurse Practitioner Acute Care; ATTEND Nurse Practitioner Family
DX: R07.9 Chest pain, unspecified (principal); E86.0 Dehydration; J44.9 Chronic obstructive pulmonary disease, unspecified; E11.9 Type 2 diabetes mellitus without complications; K21.9 Gastro-esophageal reflux disease without esophagitis; I10 Essential (primary) hypertension; R00.0 Tachycardia, unspecified; E78.5 Hyperlipidemia, unspecified; M19.90 Unspecified osteoarthritis, unspecified site; M51.36 Other intervertebral disc degeneration, lumbar region; F17.210 Nicotine dependence, cigarettes, uncomplicated; Z79.84 Long term (current) use of oral hypoglycemic drugs; Z79.1 Long term (current) use of non-steroidal anti-inflammatories (NSAID); Z79.891 Long term (current) use of opiate analgesic; Z79.899 Other long term (current) drug therapy; Z82.49 Family history of ischemic heart disease and other diseases of the circulatory system; Z96.652 Presence of left artificial knee joint; Z91.030 Bee allergy status
CPT/HCPCS: 96366; 96365; J7611; J1815; 85379; 82553 ×2; 80053 ×2; 82948 ×2; 80061; 36415 ×3; 85025 ×2; 82550 ×2; 84443; 84484 ×4; 83880; 36416 ×2; 71045; 71275; 94760; 94640; 94664; 99285; 99284; 93306; 93005 ×2; G0378; 87635

== ENCOUNTER 2020-07-24 05:29 | Day surgery (SDC) | payer MEDICARE, OTHER ==
[2020-07-24] MEDS ORDERED: LACTATED RINGERS 1,000 ML ONE (06:35)
[2020-07-24] MEDS ORDERED: SODIUM CHLORIDE 0.9% (FLUSH) 10 ML SYG ONE (06:37)
[2020-07-24] MEDS ORDERED: LIDOCAINE 1% 10 ML VIAL INJ ONE (07:00)
[2020-07-24] MEDS ORDERED: PROPOFOL 200 MG/20 ML VIAL IV ONE (07:00)
[2020-07-24] MEDS ORDERED: ALBUTEROL SULFATE 2.5 MG/3 ML VIAL NEB ONE (08:33)
--- NOTE | 2020-07-24 09:10 | OP ---
DATE OF PROCEDURE: 07/24/20 PREOPERATIVE DIAGNOSIS: 1. Gastroesophageal reflux disease. POSTOPERATIVE DIAGNOSIS: 1. Small hiatal hernia, no other significant findings. PROCEDURE: 1. EGD. SURGEON: Teodoro Navas MD ANESTHESIA: General. PROCEDURE: In lateral position, general anesthesia was induced. With bite block in place and the patient comfortable, the lubricated scope was inserted, passed into the posterior pharynx and into the esophagus without difficulty. We went into the stomach and cannulated and went down to the second portion of the duodenum. Upon withdrawal, there was bile in the duodenum. There was no evidence of ulcers. There was no evidence of active gastritis in the pylorus. On retroflexion of the scope, there was a small hiatal hernia. Otherwise, the gastric surfaces appeared normal with no evidence of inflammation, polyps or ulcers. Upon withdrawal, the GE junction appeared normal. The esophagus is normal as well. She tolerated the procedure and was taken to Recovery to be discharged. #[id number] cc: Teodoro Castillo MD [facility]
[2020-07-24 09:18] VITALS: O2SAT 98
[2020-07-24 09:28] VITALS: BP 145/84; TEMP 97.4
== END 2020-07-24 09:15 | disposition home or self-care (01) ==
LOC: AMB 05:29
PROVIDERS: ATTEND Surgery
DX: K21.9 Gastro-esophageal reflux disease without esophagitis (principal); K44.9 Diaphragmatic hernia without obstruction or gangrene; E11.9 Type 2 diabetes mellitus without complications; J44.9 Chronic obstructive pulmonary disease, unspecified; I10 Essential (primary) hypertension; F17.200 Nicotine dependence, unspecified, uncomplicated; E78.00 Pure hypercholesterolemia, unspecified; M19.90 Unspecified osteoarthritis, unspecified site; Z96.652 Presence of left artificial knee joint; Z79.84 Long term (current) use of oral hypoglycemic drugs; Z79.899 Other long term (current) drug therapy
CPT/HCPCS: 00731; 36416; 43235; 82948; A4216; J7120; J7611

== ENCOUNTER → 2020-08-25 | Outpatient (CLI) | payer MEDICARE, OTHER ==
--- NOTE | 2020-08-25 15:53 | RAD ---
EXAM DESCRIPTION: Shoulder,Left 2 or More Views CLINICAL HISTORY: 59 years Female, SHOULDER PAIN LEFT COMPARISON: None. FINDINGS: Four views of the left shoulder show no acute fracture or malalignment. Degenerative calcification arising from the inferior margin of the glenoid without significant glenohumeral joint space narrowing. Mild left AC joint space narrowing without significant undersurface spurring. IMPRESSION: Mild degenerative changes in the left AC and glenohumeral joints. Electronically signed by: Jalen Duggan MD 08/25/2020 3:51 PM [facility]
== END ==
LOC: RAD 10:17
PROVIDERS: ATTEND Orthopaedic Surgery
DX: M19.012 Primary osteoarthritis, left shoulder (principal)

== ENCOUNTER → 2020-09-04 | Outpatient (CLI) | payer MEDICARE, OTHER ==
--- NOTE | 2020-09-04 15:14 | MRI ---
EXAM DESCRIPTION: Shoulder,Left CLINICAL HISTORY: 59 years, Female, pain in left shoulder COMPARISON: None TECHNIQUE: MRI of the left shoulder was performed with multiplanar multi sequence imaging according to our usual protocol. FINDINGS: Marked thickening and increased signal intensity on infraspinatus and supraspinatus and to a lesser extent subscapularis. Extensive interstitial partial-thickness tear supraspinatus and infraspinatus. Focal full-thickness tear anterior distal margin of the supraspinatus with 8 mm of retraction. No muscular atrophy of the rotator cuff. Long head biceps and glenoid labrum intact. No significant glenohumeral arthritis. Moderate AC joint arthropathy with capsular thickening and edema and marginal osteophyte formation. Type II acromion process with mild downsloping. Moderate subacromial and subdeltoid edema/bursitis IMPRESSION: 1. Full-thickness minimally retracted tear distal anterior supraspinatus with dramatic supraspinatus and infraspinatus tendinopathy Electronically signed by: Juan Wilson MD 09/04/2020 3:12 PM [facility]
== END ==
LOC: MRI 08:00
PROVIDERS: ATTEND Orthopaedic Surgery
DX: M75.102 Unspecified rotator cuff tear or rupture of left shoulder, not specified as traumatic (principal); M75.82 Other shoulder lesions, left shoulder